=== PATIENT | male | born 1985 | race Caucasian/White ===

== ENCOUNTER → 2020-08-17 10:15 | Outpatient (CLI) | payer OTHER, SELFPAY ==
--- NOTE | 2020-08-17 10:25 | XR_ITS ---
PROCEDURE: XR LUMBAR SPINE MIN 4V CLINICAL INDICATION: ACUTE RT SIDED LOW BACK PAIN W/O SCIATICA COMPARISON: No exams were available for comparison FINDINGS: Mild dextroscoliosis of the lumbar spine Straightening of the lumbar lordosis nonspecific and may be due to patient position muscle spasm. There is some decrease in the disc space at L4-5. No fracture or dislocation. No lytic or blastic change. Other findings:Small calcific densities overlie both renal pelves on the AP view and may represent nephrolithiasis. IMPRESSION: Straightening of lumbar lordosis with mild scoliosis convex right and mild degenerative disc disease at L4-5 Possible bilateral nephrolithiasis. Dictated by: Jose David Arreola MD 08/17/2020 14:34 Jose David Arreola MD in [facility] 08/17/2020 14:34
== END ==
PROVIDERS: PCP Internal Medicine Adolescent Medicine; Visit Provider Internal Medicine Adolescent Medicine
DX: M54.5 Low back pain (principal)
CPT/HCPCS: 72110

== ENCOUNTER 2020-09-07 17:00 | Outpatient (RCR) | payer OTHER, SELFPAY ==
--- NOTE | 2020-08-21 08:44 | [facility].PTOPEV ---
PT Outpatient Evaluation Rehab PT Outpatient Evaluation Start: 08/21/20 07:35 Freq: Status: Active Protocol: Document 08/21/20 07:35 PATRICK (Rec: 08/21/20 08:44 [email or web address] [id number]) Electronically Signed By Thee Jaime, PT 08/21/20 07:35 Outpatient Therapy Subjective History Subjective History Pt. is a 35 year old male who presents to Outpatient PT clinic w/ complaints of constant and actue LBP!(R>L) of insidious onset since last Friday(08/15) morning. Pt. reports symptoms may have been brought on Friday(08/13/20) when he awkwardly bent forward to lift a tarp off his boat during a fishing tournament, but stated not noticing symptoms until Friday(08/15/20) morning. Pt. reports symptoms were first in the [facility] last week, but states having tenderness in the LLB this morning(08/21/20) . Pt. reports being unable to extend lumbar spine(standing/ walk/supine) at all last week d/t symptoms, but reports improvements now post prescribed medication last (08/17/20). Pt. reports symptom relief w/ prescribed Steroid, Ibuprofen, and Muscle Relaxer. Recent diagnostic imaging positive for L4/L5 DDD, decreased lumbar lordosis, and possible bilateral nephrolithiasis. Pt. denies having injections for current pathology. Current medications menitoned above. PMH includes R-sided Sciatica, RLE knee ATS, and 6 Polypectomies. Chief Complaint Pain,Spasms Symptom Type Throb,Sharp Symptoms Relieved By Rest/Positioning,Heat,Ice, Prescription Meds Symptoms Aggravated By Supine,Standing,Bending/ Stooping,Twisting,Walking, Lifting Prior Functional Limitations None Current Functional L
== END 2020-09-25 14:00 | disposition home or self-care (01) ==
LOC: PT.CARL 17:00
PROVIDERS: Visit Provider Internal Medicine Adolescent Medicine
DX: M54.5 Low back pain (principal)
CPT/HCPCS: 97010; 97014; 97110; 97140; 97163; G0283

== ENCOUNTER → 2023-05-25 16:21 | Outpatient (CLI) | payer OTHER, SELFPAY ==
[2023-05-25 16:55] LABS: Adenovirus F 40/41, stool Not Detected (NotDetected); Astrovirus Not Detected (NotDetected); Campylobacter Not Detected (NotDetected); Clostridium Difficile A/B, PCR Not Detected (NotDetected); Cryptosporidium Not Detected (NotDetected); Cyclospora Cayetanesis Not Detected (NotDetected); Entamoeba histolytica Not Detected (NotDetected); Enteroaggregative E coli Not Detected (NotDetected); Enteropathogenic E coli Not Detected (NotDetected); Enterotoxigenic E coli Not Detected (NotDetected); Giardia lamblia Not Detected (NotDetected); Norovirus Not Detected (NotDetected); Plesimonas Shigalloides, PCR Not Detected (NotDetected); Rotavirus A Not Detected (NotDetected); Salmonella, PCR Not Detected (NotDetected); Sapovirus Not Detected (NotDetected); Shiga-like toxin E coli Not Detected (NotDetected); Shigella Enterovasive E coli Not Detected (NotDetected); Vibrio Cholerae Not Detected (NotDetected); Vibrio, PCR Not Detected (NotDetected); Yersinia Entercolitica, PCR Not Detected (NotDetected)
== END ==
PROVIDERS: PCP Nurse Practitioner Family; Visit Provider Nurse Practitioner Family
DX: K52.89 Other specified noninfective gastroenteritis and colitis (principal)
CPT/HCPCS: 87507

== ENCOUNTER 2024-07-12 13:54 | Outpatient (CLI) | payer OTHER, SELFPAY ==
[2024-07-12 16:09] LABS: Coronavirus 19, PCR Not Detected (NotDetected); Influenza A, PCR Not Detected (NotDetected); Influenza B, PCR Not Detected (NotDetected)
== END 2024-07-12 23:59 | disposition home or self-care (01) ==
LOC: LAB.DROPOF 07-13 09:59
PROVIDERS: PCP Nurse Practitioner Family; Visit Provider Nurse Practitioner Family
DX: R09.89 Other specified symptoms and signs involving the circulatory and respiratory systems (principal)
CPT/HCPCS: 87636